=== PATIENT | female | born 1995 | race Caucasian/White ===

== ENCOUNTER 2017-11-18 07:24 | Inpatient (IN) | payer OTHER ==
[2017-11-18] MEDS ORDERED: PROCHLORPERAZINE 25 MG SUPP PR (08:30)
[2017-11-18] MEDS: DEXTROSE 5%-0.9% NACL 1,000 ML IV ×2 (10:15→21:02)
[2017-11-18] MEDS ORDERED: ONDANSETRON 4 MG INJ (12:13)
[2017-11-18] MEDS: FAMOTIDINE 20 MG INJ IV ×2 (12:17→21:06)
[2017-11-18] MEDS: ONDANSETRON 4 MG INJ IV (12:17)
[2017-11-18] MEDS ORDERED: FAMOTIDINE 20 MG TAB PO (12:30)
[2017-11-18] MEDS: ACETAMINOPHEN 325 MG TAB PO (19:35)
[2017-11-19] MEDS: AL HYDROX/MG HYDROX/SIMETH 30 ML CUP PO (00:41)
[2017-11-19] MEDS: DEXTROSE 5%-0.9% NACL 1,000 ML IV ×3 (04:30→17:00)
[2017-11-19 05:37] LABS: ADD MAN DIFF? NO
[2017-11-19 05:42] LABS: BASOPHILS % 0.3 % (0.0-2.0); EOSINOPHILS # 0.2 10^3/ul (0.0-0.5); EOSINOPHILS % 1.3 % (0.0-7.0); HEMATOCRIT 34.6 % (37.0-47.0); HEMOGLOBIN 11.9 g/dl (12.0-16.0); LYMPHOCYTES # 2.1 10^3/ul (0.8-2.9); LYMPHOCYTES % 17.3 % (15.0-51.0); MEAN CORPUSCULAR HEMOGLOBIN 29.9 pg (29.0-33.0); MEAN CORPUSCULAR HGB CONC 34.4 g/dl (32.0-37.0); MEAN CORPUSCULAR VOLUME 86.9 fl (82.0-101.0); MEAN PLATELET VOLUME 10.7 fl (7.4-10.4); MONOCYTE # 0.9 10^3/ul (0.3-0.9); MONOCYTES % 7.8 % (0.0-11.0); NEUTROPHIL # 8.7 10^3/ul (1.6-7.5); NEUTROPHILS % 72.9 % (39.0-77.0); PLATELET COUNT 232 10^3/UL (140-415); RED BLOOD COUNT 3.98 10^6/ul (4.20-5.40)
[2017-11-19 05:42] LABS: WHITE BLOOD COUNT 11.9 10^3/ul (4.8-10.8)
[2017-11-19 06:28] LABS: ANION GAP 13 (8-16); BLOOD UREA NITROGEN 3 mg/dl (7-20); CALCIUM 8.6 mg/dl (8.4-10.2); CARBON DIOXIDE 21 mmol/L (21-31); CHLORIDE 111 mmol/L (97-110); CREATININE 0.53 mg/dl (0.44-1.00); GLUCOSE 94 mg/dl (70-220); POTASSIUM 3.6 mmol/L (3.5-5.1); SODIUM 141 mmol/L (135-144)
[2017-11-19] MEDS: FAMOTIDINE 20 MG INJ IV ×2 (09:01→20:35)
[2017-11-19] MEDS: ACETAMINOPHEN 325 MG TAB PO (09:01)
[2017-11-19] MEDS: ONDANSETRON 4 MG INJ IV ×2 (09:05→18:29)
[2017-11-19] MEDS: DOCUSATE SODIUM 100 MG CAP PO (20:35)
[2017-11-20] MEDS: DEXTROSE 5%-0.9% NACL 1,000 ML IV ×2 (03:41→13:49)
[2017-11-20 05:06] LABS: ADD MAN DIFF? NO
[2017-11-20 05:10] LABS: WHITE BLOOD COUNT 11.2 10^3/ul (4.8-10.8)
[2017-11-20 05:10] LABS: BASOPHIL # 0.1 10^3/ul (0.0-0.1); BASOPHILS % 0.5 % (0.0-2.0); EOSINOPHILS # 0.2 10^3/ul (0.0-0.5); EOSINOPHILS % 1.6 % (0.0-7.0); HEMATOCRIT 36.5 % (37.0-47.0); HEMOGLOBIN 12.3 g/dl (12.0-16.0); LYMPHOCYTES # 2.1 10^3/ul (0.8-2.9); LYMPHOCYTES % 18.2 % (15.0-51.0); MEAN CORPUSCULAR HEMOGLOBIN 29.4 pg (29.0-33.0); MEAN CORPUSCULAR HGB CONC 33.7 g/dl (32.0-37.0); MEAN CORPUSCULAR VOLUME 87.1 fl (82.0-101.0); MEAN PLATELET VOLUME 10.5 fl (7.4-10.4); MONOCYTE # 0.8 10^3/ul (0.3-0.9); MONOCYTES % 7.3 % (0.0-11.0); NEUTROPHIL # 8.1 10^3/ul (1.6-7.5); PLATELET COUNT 240 10^3/UL (140-415); RED BLOOD COUNT 4.19 10^6/ul (4.20-5.40); RED CELL DISTRIBUTION WIDTH 12.8 % (11.5-14.5)
[2017-11-20 05:30] LABS: ALANINE AMINOTRANSFERASE 19 IU/L (13-69); ALBUMIN 3.3 g/dl (3.3-4.9); ALBUMIN/GLOBULIN RATIO 1.13; ALKALINE PHOSPHATASE 42 IU/L (42-121); ANION GAP 13 (8-16); ASPARTATE AMINO TRANSFERASE 12 IU/L (15-46); BILIRUBIN,INDIRECT 0.1 mg/dl (0-1.1); BILIRUBIN,TOTAL 0.1 mg/dl (0.2-1.3); BLOOD UREA NITROGEN 4 mg/dl (7-20); CALCIUM 8.7 mg/dl (8.4-10.2); CARBON DIOXIDE 20 mmol/L (21-31); CHLORIDE 111 mmol/L (97-110); CREATININE 0.64 mg/dl (0.44-1.00); GLUCOSE 95 mg/dl (70-220); POTASSIUM 4.1 mmol/L (3.5-5.1); SODIUM 140 mmol/L (135-144); TOTAL PROTEIN 6.2 g/dl (6.1-8.1)
[2017-11-20] MEDS: FAMOTIDINE 20 MG INJ IV ×2 (08:52→20:35)
[2017-11-20] MEDS: ONDANSETRON 4 MG INJ IV (15:08)
[2017-11-21] MEDS: FAMOTIDINE 20 MG INJ IV (08:47)
[2017-11-21] MEDS: DEXTROSE 5%-0.9% NACL 1,000 ML IV ×2 (10:04)
[2017-11-21] MEDS: AL HYDROX/MG HYDROX/SIMETH 30 ML CUP PO (14:54)
[2017-11-21] MEDS: DOCUSATE SODIUM 100 MG CAP PO (14:54)
== END 2017-11-21 16:33 | disposition home or self-care (01) | DRG 781 ==
LOC: MS1 07:24
DX: O21.8 Other vomiting complicating pregnancy (principal); O99.211 Obesity complicating pregnancy, first trimester; E66.9 Obesity, unspecified; Z68.33 Body mass index [BMI] 33.0-33.9, adult; Z3A.01 Less than 8 weeks gestation of pregnancy; R10.13 Epigastric pain
CPT/HCPCS: 76700; 76801; 80048; 80053; 85025; 99217

== ENCOUNTER 2017-11-25 16:14 | Emergency (ER) | payer OTHER ==
[2017-11-25] MEDS: ACETAMINOPHEN 500 MG TAB PO (16:44)
[2017-11-25 16:47] LABS: ADD MAN DIFF? NO
[2017-11-25] MEDS: ONDANSETRON 4 MG INJ IV (16:55)
[2017-11-25] MEDS: SOD CHLORIDE 0.9% 1,000 ML IV (16:56)
[2017-11-25 16:58] LABS: WHITE BLOOD COUNT 11.7 10^3/ul (4.8-10.8)
[2017-11-25 16:58] LABS: BASOPHIL # 0.1 10^3/ul (0.0-0.1); BASOPHILS % 0.5 % (0.0-2.0); EOSINOPHILS # 0.1 10^3/ul (0.0-0.5); EOSINOPHILS % 0.5 % (0.0-7.0); HEMATOCRIT 43.5 % (37.0-47.0); HEMOGLOBIN 14.9 g/dl (12.0-16.0); LYMPHOCYTES # 1.6 10^3/ul (0.8-2.9); LYMPHOCYTES % 13.3 % (15.0-51.0); MEAN CORPUSCULAR HEMOGLOBIN 29.4 pg (29.0-33.0); MEAN CORPUSCULAR HGB CONC 34.3 g/dl (32.0-37.0); MEAN PLATELET VOLUME 10.3 fl (7.4-10.4); MONOCYTE # 0.7 10^3/ul (0.3-0.9); MONOCYTES % 6.1 % (0.0-11.0); NEUTROPHIL # 9.3 10^3/ul (1.6-7.5); NEUTROPHILS % 79.1 % (39.0-77.0); PLATELET COUNT 303 10^3/UL (140-415); RED BLOOD COUNT 5.06 10^6/ul (4.20-5.40); RED CELL DISTRIBUTION WIDTH 12.7 % (11.5-14.5)
[2017-11-25 17:17] LABS: ALANINE AMINOTRANSFERASE 25 IU/L (13-69); ALBUMIN 4.2 g/dl (3.3-4.9); ALKALINE PHOSPHATASE 54 IU/L (42-121); AMYLASE 111 U/L (11-123); ANION GAP 19 (8-16); ASPARTATE AMINO TRANSFERASE 15 IU/L (15-46); BILIRUBIN,INDIRECT 0.1 mg/dl (0-1.1); BILIRUBIN,TOTAL 0.1 mg/dl (0.2-1.3); BLOOD UREA NITROGEN 10 mg/dl (7-20); CALCIUM 9.7 mg/dl (8.4-10.2); CARBON DIOXIDE 21 mmol/L (21-31); CHLORIDE 104 mmol/L (97-110); CREATININE 0.63 mg/dl (0.44-1.00); GLUCOSE 105 mg/dl (70-220); LIPASE 53 U/L (23-300); POTASSIUM 3.9 mmol/L (3.5-5.1); SODIUM 140 mmol/L (135-144); TOTAL PROTEIN 7.7 g/dl (6.1-8.1)
[2017-11-25 17:19] LABS: ADD UMIC YES; UR ASCORBIC ACID NEGATIVE (NEGATIVE); UR BACTERIA FEW /HPF (NONE SEEN); UR BILIRUBIN (Dip) NEGATIVE (NEGATIVE); UR BLOOD (Dip) NEGATIVE (NEGATIVE); UR CLARITY CLOUDY (CLEAR); UR COLOR YELLOW (YELLOW); UR GLUCOSE (Dip) NEGATIVE (NEGATIVE); UR KETONES (Dip) 2+ mg/dL (NEGATIVE); UR LEUKOCYTE ESTERASE (Dip) 2+ Leu/ul (NEGATIVE); UR MUCUS MANY /HPF (NONE SEEN); UR NITRITE (Dip) NEGATIVE (NEGATIVE); UR RBC 2 /HPF (0-5); UR SPECIFIC GRAVITY (Dip) 1.027 (1.003-1.030); UR SQUAMOUS EPITHELIAL CELL MODERATE /HPF (FEW); UR TOTAL PROTEIN (Dip) 1+ mg/dl (NEGATIVE); UR UROBILINOGEN (Dip) 1+ mg/dL (NEGATIVE); UR WBC 15 /HPF (0-5)
[2017-11-25] MEDS: CEFTRIAXONE 1 GM/50 ML (PMX) 50 ML IVPB (17:46)
[2017-11-25] MEDS: METOCLOPRAMIDE 10 MG INJ IV (17:46)
== END 2017-11-25 19:25 | disposition home or self-care (01) ==
LOC: FTE 16:14
DX: O21.9 Vomiting of pregnancy, unspecified (principal); O23.41 Unspecified infection of urinary tract in pregnancy, first trimester; R10.2 Pelvic and perineal pain; Z3A.09 9 weeks gestation of pregnancy
CPT/HCPCS: 36415; 76801; 80053; 81001; 81025; 82150; 83690; 84702; 85025; 86900; 86901; 87086; 96374; 96375; 99285-25

== ENCOUNTER 2018-06-25 09:18 | Inpatient (IN) | payer OTHER ==
[2018-06-25] MEDS ORDERED: METHYLERGONOVINE 0.2 MG INJ IM (10:30)
[2018-06-25] MEDS ORDERED: CARBOPROST 250 MCG INJ IM (10:30)
[2018-06-25] MEDS ORDERED: LIDOCAINE 1% (MPF) 30 ML INJ INJ (10:30)
[2018-06-25] MEDS ORDERED: IBUPROFEN 600 MG TAB PO (10:30)
[2018-06-25] MEDS ORDERED: MISOPROSTOL 200 MCG TAB PR (10:30)
[2018-06-25] MEDS ORDERED: OXYTOCIN 30 UNITS/LR 500 ML IV ×2 (10:30)
[2018-06-25] MEDS: LACTATED RINGER'S 1,000 ML IV ×2 (10:43→18:04)
[2018-06-25 10:49] LABS: ADD MAN DIFF? NO
[2018-06-25 10:54] LABS: WHITE BLOOD COUNT 9.1 10^3/ul (4.8-10.8)
[2018-06-25 10:54] LABS: BASOPHIL # 0.1 10^3/ul (0.0-0.1); BASOPHILS % 0.6 % (0.0-2.0); EOSINOPHILS # 0.2 10^3/ul (0.0-0.5); HEMATOCRIT 38.8 % (37.0-47.0); LYMPHOCYTES # 1.3 10^3/ul (0.8-2.9); LYMPHOCYTES % 13.9 % (15.0-51.0); MEAN CORPUSCULAR HEMOGLOBIN 28.6 pg (29.0-33.0); MEAN CORPUSCULAR HGB CONC 33.5 g/dl (32.0-37.0); MEAN CORPUSCULAR VOLUME 85.5 fl (82.0-101.0); MEAN PLATELET VOLUME 10.9 fl (7.4-10.4); MONOCYTE # 0.6 10^3/ul (0.3-0.9); MONOCYTES % 6.2 % (0.0-11.0); NEUTROPHIL # 6.9 10^3/ul (1.6-7.5); NEUTROPHILS % 76.4 % (39.0-77.0); PLATELET COUNT 199 10^3/UL (140-415); RED BLOOD COUNT 4.54 10^6/ul (4.20-5.40); RED CELL DISTRIBUTION WIDTH 14.6 % (11.5-14.5)
[2018-06-25 11:14] LABS: PROTIME 12.2 Sec (11.9-14.9)
[2018-06-25 11:15] LABS: PARTIAL THROMBOPLASTIN TIME 28.1 Sec (23.0-35.0)
[2018-06-25 12:55] LABS: HEPATITIS B SURFACE ANTIGEN NEGATIVE (NEGATIVE)
[2018-06-25] MEDS ORDERED: ALBUTEROL HFA 8 GM INHALER INH (13:30)
[2018-06-25] MEDS: MISOPROSTOL 50 MCG CAPSULE PO ×2 (14:38→18:28)
[2018-06-25 18:16] LABS: RAPID PLASMA REAGIN NONREACTIVE (NR)
[2018-06-26] MEDS ORDERED: DIPHENHYDRAMINE 50 MG INJ IV (01:30)
[2018-06-26] MEDS ORDERED: HYDROmorphONE 0.5 MG/0.5 ML SYG IV ×2 (01:30)
[2018-06-26] MEDS ORDERED: NALOXONE (0.4 MG/ML) INJ IV (01:30)
[2018-06-26] MEDS ORDERED: ZOLPIDEM 5 MG TAB PO (01:30)
[2018-06-26] MEDS ORDERED: ONDANSETRON 4 MG INJ IV (01:30)
[2018-06-26] MEDS ORDERED: FENTAnyl 2MCG/ML-ROPIV 0.2% 100 ML (01:37)
[2018-06-26] MEDS: LACTATED RINGER'S 1,000 ML IV ×2 (05:13→18:08)
[2018-06-26] MEDS: AMPICILLIN 2 GM/NS (PMX) 100 ML IVPB (09:25)
[2018-06-26] MEDS: OXYTOCIN 30 UNITS/LR 500 ML IV (09:26)
[2018-06-26] MEDS: FENTAnyl 2MCG/ML-ROPIV 0.2% 100 ML BAG EPI ×3 (09:39→23:52)
[2018-06-26] MEDS: AMPICILLIN 1 GM/NS (PMX) 50 ML IVPB ×3 (14:39→22:58)
[2018-06-27] MEDS ORDERED: MINERAL OIL LIGHT 10 ML VIAL (00:35)
[2018-06-27] MEDS ORDERED: CEFAZOLIN 2 GM/50 ML (PMX) 50 ML IVPB ×2 (02:13→02:30)
[2018-06-27] MEDS ORDERED: OXYTOCIN 30 UNITS/LR 500 ML IV ×3 (02:30→07:00)
[2018-06-27] MEDS ORDERED: MISOPROSTOL 200 MCG TAB PR ×2 (02:30→07:00)
[2018-06-27] MEDS ORDERED: CARBOPROST 250 MCG INJ IM ×2 (02:30→07:00)
[2018-06-27] MEDS ORDERED: METHYLERGONOVINE 0.2 MG INJ IM ×2 (02:30→07:00)
[2018-06-27] MEDS ORDERED: morphine SULFATE/PF (10 MG/10 ML) INJ (02:39)
[2018-06-27] MEDS ORDERED: FENTAnyl 50 MCG/ML VIAL (02:39)
[2018-06-27] MEDS ORDERED: DEXAMETHASONE 4 MG/ML 1 ML INJ (02:55)
[2018-06-27] MEDS ORDERED: AZITHROMYCIN 500MG/NS (PMX) 250 ML (03:20)
[2018-06-27] MEDS ORDERED: PHENYLephrine (100 MCG/ML) 5ML SYG (03:39)
[2018-06-27] MEDS ORDERED: ZOLPIDEM 5 MG TAB PO (04:00)
[2018-06-27] MEDS ORDERED: KETOROLAC 30 MG INJ IV (04:00)
[2018-06-27] MEDS ORDERED: NALOXONE (0.4 MG/ML) INJ IV (04:00)
[2018-06-27] MEDS ORDERED: HYDROmorphONE 0.5 MG/0.5 ML SYG IV ×2 (04:00)
[2018-06-27] MEDS ORDERED: DIPHENHYDRAMINE 50 MG INJ IV (04:00)
[2018-06-27] MEDS ORDERED: ONDANSETRON 4 MG INJ IV (04:00)
[2018-06-27] MEDS: KETOROLAC 30 MG INJ IV (06:05)
[2018-06-27] MEDS: OXYTOCIN 30 UNITS/LR 500 ML IV (06:05)
[2018-06-27] MEDS ORDERED: NA PHOSPHATE/BIPHOS 133 ML ENEMA PR (07:00)
[2018-06-27] MEDS ORDERED: LANOLIN 7 GM TUBE TOP (07:00)
[2018-06-27] MEDS: SENNA/DOCUSATE NA (8.6MG/50MG) TAB PO ×2 (09:00→21:32)
[2018-06-27] MEDS: CEFAZOLIN 2 GM/50 ML (PMX) 50 ML IVPB ×2 (09:20→15:53)
[2018-06-27] MEDS: LACTATED RINGER'S 1,000 ML IV (10:52)
[2018-06-27] MEDS: CLINDAMYCIN 300 MG CAP PO (14:00)
[2018-06-27 16:18] LABS: ADD MAN DIFF? NO
[2018-06-27 16:20] LABS: WHITE BLOOD COUNT 23.2 10^3/ul (4.8-10.8)
[2018-06-27 16:20] LABS: ABNORMAL IP MESSAGE 1; BASOPHILS % 0.2 % (0.0-2.0); HEMATOCRIT 33.5 % (37.0-47.0); HEMOGLOBIN 10.9 g/dl (12.0-16.0); LYMPHOCYTES # 1.5 10^3/ul (0.8-2.9); LYMPHOCYTES % 6.2 % (15.0-51.0); MEAN CORPUSCULAR HEMOGLOBIN 28.8 pg (29.0-33.0); MEAN CORPUSCULAR HGB CONC 32.5 g/dl (32.0-37.0); MEAN CORPUSCULAR VOLUME 88.6 fl (82.0-101.0); MEAN PLATELET VOLUME 10.9 fl (7.4-10.4); MONOCYTE # 1.3 10^3/ul (0.3-0.9); MONOCYTES % 5.6 % (0.0-11.0); NEUTROPHIL # 20.2 10^3/ul (1.6-7.5); NEUTROPHILS % 87.1 % (39.0-77.0); PLATELET COUNT 169 10^3/UL (140-415); RED BLOOD COUNT 3.78 10^6/ul (4.20-5.40); RED CELL DISTRIBUTION WIDTH 15.2 % (11.5-14.5)
[2018-06-27 16:23] LABS: POSITIVE DIFF @See below
[2018-06-27] MEDS: CIPROFLOXACIN 500 MG TAB PO (19:22)
[2018-06-27] MEDS: CLINDAMYCIN 900 MG/D5W (PMX) 50 ML IVPB (19:23)
[2018-06-27] MEDS: GENTAMICIN 80 MG/NS (PMX) 50 ML IVPB (19:28)
[2018-06-28] MEDS: CLINDAMYCIN 900 MG/D5W (PMX) 50 ML IVPB ×4 (00:07→18:30)
[2018-06-28] MEDS: GENTAMICIN 80 MG/NS (PMX) 50 ML IVPB ×3 (03:07→17:53)
[2018-06-28] MEDS: HYDROCODONE/APAP (5/325) TAB PO (03:15)
[2018-06-28] MEDS: OXYCODONE/ACETAMINOPHEN (5/325) TAB PO ×2 (06:37→15:15)
[2018-06-28] MEDS: CIPROFLOXACIN 500 MG TAB PO ×2 (06:37→17:53)
[2018-06-28] MEDS: BISACODYL 10 MG SUPP PR ×2 (06:50→06:51)
[2018-06-28 08:07] LABS: ADD MAN DIFF? NO
[2018-06-28 08:18] LABS: BASOPHIL # 0.1 10^3/ul (0.0-0.1); BASOPHILS % 0.3 % (0.0-2.0); EOSINOPHILS # 0.1 10^3/ul (0.0-0.5); EOSINOPHILS % 0.8 % (0.0-7.0); HEMATOCRIT 33.5 % (37.0-47.0); HEMOGLOBIN 10.8 g/dl (12.0-16.0); LYMPHOCYTES # 1.6 10^3/ul (0.8-2.9); LYMPHOCYTES % 9.1 % (15.0-51.0); MEAN CORPUSCULAR HEMOGLOBIN 28.8 pg (29.0-33.0); MEAN CORPUSCULAR HGB CONC 32.2 g/dl (32.0-37.0); MEAN CORPUSCULAR VOLUME 89.3 fl (82.0-101.0); MEAN PLATELET VOLUME 10.5 fl (7.4-10.4); MONOCYTE # 1.2 10^3/ul (0.3-0.9); MONOCYTES % 6.7 % (0.0-11.0); NEUTROPHIL # 14.5 10^3/ul (1.6-7.5); NEUTROPHILS % 81.9 % (39.0-77.0); PLATELET COUNT 174 10^3/UL (140-415); RED BLOOD COUNT 3.75 10^6/ul (4.20-5.40); RED CELL DISTRIBUTION WIDTH 14.8 % (11.5-14.5)
[2018-06-28 08:18] LABS: WHITE BLOOD COUNT 17.7 10^3/ul (4.8-10.8)
[2018-06-28] MEDS: SENNA/DOCUSATE NA (8.6MG/50MG) TAB PO (09:00)
[2018-06-28] MEDS: IBUPROFEN 800 MG TAB PO ×2 (12:15→22:00)
[2018-06-28] MEDS: LACTATED RINGER'S 1,000 ML IV (18:30)
[2018-06-28] MEDS: ONDANSETRON 4 MG INJ IV (22:38)
[2018-06-29] MEDS: CLINDAMYCIN 900 MG/D5W (PMX) 50 ML IVPB ×5 (00:23→23:49)
[2018-06-29] MEDS: metroNIDAZOLE 500 MG TAB PO ×4 (00:30→23:49)
[2018-06-29] MEDS: GENTAMICIN 80 MG/NS (PMX) 50 ML IVPB ×2 (01:11→10:30)
[2018-06-29] MEDS: OXYCODONE/ACETAMINOPHEN (5/325) TAB PO (02:10)
[2018-06-29] MEDS: ONDANSETRON 4 MG INJ IV (02:16)
[2018-06-29] MEDS ORDERED: IBUPROFEN 600 MG TAB PO (02:30)
[2018-06-29] MEDS: IBUPROFEN 800 MG TAB PO ×3 (06:10→23:49)
[2018-06-29] MEDS: CIPROFLOXACIN 500 MG TAB PO ×2 (06:10→17:44)
[2018-06-29 09:44] LABS: ADD MAN DIFF? NO
[2018-06-29 09:50] LABS: WHITE BLOOD COUNT 11.9 10^3/ul (4.8-10.8)
[2018-06-29 09:50] LABS: BASOPHILS % 0.3 % (0.0-2.0); EOSINOPHILS # 0.1 10^3/ul (0.0-0.5); EOSINOPHILS % 0.8 % (0.0-7.0); HEMATOCRIT 31.3 % (37.0-47.0); HEMOGLOBIN 10.1 g/dl (12.0-16.0); LYMPHOCYTES # 1.1 10^3/ul (0.8-2.9); LYMPHOCYTES % 9.1 % (15.0-51.0); MEAN CORPUSCULAR HEMOGLOBIN 28.5 pg (29.0-33.0); MEAN CORPUSCULAR HGB CONC 32.3 g/dl (32.0-37.0); MEAN CORPUSCULAR VOLUME 88.2 fl (82.0-101.0); MONOCYTE # 0.7 10^3/ul (0.3-0.9); MONOCYTES % 5.8 % (0.0-11.0); NEUTROPHIL # 9.8 10^3/ul (1.6-7.5); NEUTROPHILS % 82.6 % (39.0-77.0); PLATELET COUNT 196 10^3/UL (140-415); RED BLOOD COUNT 3.55 10^6/ul (4.20-5.40); RED CELL DISTRIBUTION WIDTH 14.5 % (11.5-14.5)
[2018-06-29 15:17] LABS: ADD MAN DIFF? NO
[2018-06-29 15:19] LABS: BASOPHILS % 0.2 % (0.0-2.0); EOSINOPHILS # 0.2 10^3/ul (0.0-0.5); EOSINOPHILS % 2.6 % (0.0-7.0); HEMATOCRIT 29.2 % (37.0-47.0); HEMOGLOBIN 9.5 g/dl (12.0-16.0); LYMPHOCYTES # 1.1 10^3/ul (0.8-2.9); LYMPHOCYTES % 11.6 % (15.0-51.0); MEAN CORPUSCULAR HEMOGLOBIN 28.5 pg (29.0-33.0); MEAN CORPUSCULAR HGB CONC 32.5 g/dl (32.0-37.0); MEAN CORPUSCULAR VOLUME 87.7 fl (82.0-101.0); MEAN PLATELET VOLUME 10.5 fl (7.4-10.4); MONOCYTE # 0.6 10^3/ul (0.3-0.9); MONOCYTES % 6.8 % (0.0-11.0); NEUTROPHIL # 7.1 10^3/ul (1.6-7.5); NEUTROPHILS % 77.2 % (39.0-77.0); PLATELET COUNT 198 10^3/UL (140-415); RED BLOOD COUNT 3.33 10^6/ul (4.20-5.40); RED CELL DISTRIBUTION WIDTH 14.6 % (11.5-14.5)
[2018-06-29 15:19] LABS: WHITE BLOOD COUNT 9.2 10^3/ul (4.8-10.8)
[2018-06-30] MEDS: GENTAMICIN 80 MG/NS (PMX) 50 ML IVPB ×3 (01:30→09:43)
[2018-06-30] MEDS: CLINDAMYCIN 900 MG/D5W (PMX) 50 ML IVPB (06:02)
[2018-06-30] MEDS: metroNIDAZOLE 500 MG TAB PO ×3 (06:02→12:15)
[2018-06-30] MEDS: CIPROFLOXACIN 500 MG TAB PO (06:02)
[2018-06-30] MEDS: IBUPROFEN 800 MG TAB PO ×2 (06:03→13:27)
[2018-06-30] MEDS: DIPHTH/TET/ACEL PERTUSS (ADULT) 0.5 ML VIAL IM* (09:44)
[2018-06-30] MEDS: MEASLES,MUMPS,RUBELLA VACCINE INJ SC* (09:44)
== END 2018-06-30 18:08 | disposition home or self-care (01) | DRG 788 ==
LOC: L-D 09:18 → PP1 06-27 06:36
PROVIDERS: Obstetrics & Gynecology
PROC: 3E0P7VZ Introduction of Hormone into Female Reproductive, Via Natural or Artificial Opening (ICD-10-PCS; 2018-06-25 09:00)
PROC: 10D00Z1 Extraction of Products of Conception, Low, Open Approach (ICD-10-PCS; principal; 2018-06-27 02:30)
DX: O32.4XX0 Maternal care for high head at term, not applicable or unspecified (principal); Z3A.39 39 weeks gestation of pregnancy; Z37.0 Single live birth; O34.13 Maternal care for benign tumor of corpus uteri, third trimester; D25.9 Leiomyoma of uterus, unspecified
CPT/HCPCS: 62319; 76815; 85025; 85610; 85730; 86592; 86850; 86900; 86901; 87340; 90715; 99464

== ENCOUNTER 2019-03-22 13:32 | Emergency (ER) | payer OTHER ==
[2019-03-22] MEDS: IBUPROFEN 800 MG TAB PO (14:21)
== END 2019-03-22 14:43 | disposition home or self-care (01) ==
LOC: FTE 14:43
DX: G44.209 Tension-type headache, unspecified, not intractable (principal); R10.13 Epigastric pain
CPT/HCPCS: 81025; 99282